=== PATIENT | female | born 1965 | race Caucasian/White ===

== ENCOUNTER 2017-09-12 00:20 | Emergency (ER) | payer SELFPAY ==
[2017-09-12 00:29] VITALS: BP 127/88
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
== END 2017-09-12 00:45 | disposition home or self-care (01) ==
DX: F10.129 Alcohol abuse with intoxication, unspecified (principal); I10 Essential (primary) hypertension; Y09 Assault by unspecified means